=== PATIENT | female | born 1980 | race Hispanic/Latino ===

== ENCOUNTER 2017-10-25 17:48 | Emergency (ER) | payer SELFPAY ==
[~2017-10-25 17:48] MED LIST: ISOVUE-370 76%-LOCM 1 ML ONE
[2017-10-25 19:02] LABS: Bilirubin Negative (Negative); Blood, Urine Moderate (Negative); Glucose, Urine (Dipstick) Negative (Negative); Leukocyte Negative (Negative); Nitrite Negative (Negative); Protein, Urine (Dipstick) Negative (Neg-Trace); Specific Gravity, Urine 1.025 (1.005-1.030)
[2017-10-25 19:04] LABS: Clarity Clear (Clear)
[2017-10-25 19:06] LABS: Bacteria/HPF Rare-Few HPF (None Seen); Hyaline Casts/LPF 0-3 HYALINE CAST LPF (0-3 Hyaline); Pathc Cast-AUWi Flag 0.94 (0-2.49); RBC/HPF 0-3 HPF (0-3); WBC/HPF 0-3 HPF (0-3)
[2017-10-25 19:07] LABS: Pregnancy Test - Urine (BHCG) Negative (Negative); Pregu Control Background? CLEAR/WHITE (CLR/WHITE); Pregu Control Bar Appear? YES (CONTROL BAR); Specific Gravity 1.025 (1.002-1.036)
[2017-10-25 19:11] LABS: Crystals/HPF 1+ SODIUM URATE HPF (Negative)
[2017-10-25 20:42] LABS: #Lymphocytes 1.3 thou/uL (1.20-3.40); #Monocytes 0.4 thou/uL (0.11-0.59); #Neutrophils 9.6 thou/uL (1.40-6.50); %Basophils 0.2 % (0.0-1.0); %Eosinophils 0.3 % (0.0-10.0); %Lymphocytes 11.1 % (21.0-51.0); %Monocytes 3.2 % (0.0-10.0); %Neutrophils 85.3 % (42.0-75.0); Hemoglobin 14.7 g/dL (12.0-16.0); Mean Corpuscular HGB CONC 35.2 g/dL (32.0-36.0); Mean Corpuscular Hemoglobin 34.5 pg (27.0-31.0); Mean Corpuscular Volume 98.1 fl (81.0-99.0); Mean Platelet Volume 6.5 fL (7.4-10.4); Platelet Count 328 thou/uL (130-400); RBC Distribution Width 11.3 % (11.5-14.5); Red Blood Cell (RBC) Count 4.26 mill/uL (4.20-5.40); White Blood Cell (WBC) Count 11.3 thou/uL (4.8-10.8)
[2017-10-25 20:59] LABS: ALT (SGPT) 254 U/L (8-55); AST (SGOT) 189 U/L (5-34); Albumin 4.4 g/dL (3.5-5.0); Alkaline Phosphatase 128 U/L (40-150); Anion Gap 14 mmol/L (10-20); BUN (Urea Nitrogen) 12 mg/dL (7.0-18.7); Calc. Creatinine Clearance 0 mL/min (70-130); Calcium 9.4 mg/dL (7.8-10.44); Carbon Dioxide 24 mmol/L (22-29); Chloride 100 mmol/L (98-107); Estimated GFR-MDRD Greater than 90; Glucose 152 mg/dL (70-105); Lipase 15 U/L (8-78); Potassium 3.8 mmol/L (3.5-5.1); Protein, Total 8.4 g/dL (6.0-8.3); Sodium 134 mmol/L (136-145)
[2017-10-25] MEDS ORDERED: Ondansetron HCl/PF 4 MG/2 ML Vial ONE ×2 (21:59→22:41)
--- NOTE | 2017-10-26 00:41 | CT ---
EXAM: ABDOMEN CT WITH CONTRAST PELVIC CT WITH CONTRAST 10/25/17 HISTORY: Dull aching abdominal pain. Nausea. COMPARISON: None. TECHNIQUE: An abdomen and pelvic CT are performed with IV contrast. Enteric contrast was not administered. Coron al reformatted images are submitted for interpretation. FINDINGS: ABDOMEN CT: The lung bases are clear. Heart size is normal. Heart size is normal. No significant pericardial flui d. Descending thoracic aorta and abdominal aorta have a normal caliber. No periaortic fat stranding. Gallbladder is surgically absent. Intra and extrahepatic vein is patent. Hypoattenuation of the liver due to hepatic steatosis. No hepatic masses. Spleen, pancreas, and adren al glands are unremarkable. No gastrohepatic, retrocrural or periportal lymphadenopathy. No mesenteric mass, lymphadenopathy, free air or free fluid. Symmetric enhancement of the kidneys. Bilaterally, no obstructive uropathy. Limited evaluation of the alimentary canal due to lack of oral contrast. No evidence of bowel obstruction. Ileocecal junction is normal. There is fluid attenuation in the right hemicolon. Scattered diverticula. No diverticuliti s. Normal caliber appendix. PELVIC CT: Hypodensity in the lower uterine segment measuring 1.3 cm likely representing a Nabothian cyst. The u terus and adnexal structures are unremarkable. There appears to be a central filling defect involving the right ovarian vein. Significance and etiology uncertain. The possibility of a partial thrombus o f the right ovarian vein cannot be excluded. Urinary bladder is unremarkable. No lytic or blastic lesions in the osseous structures. IMPRESSION: 1. Normal caliber appendix. 2. Fluid attenuation in the right hemicolon of uncertain significance. 3. Diverticulosis, without evidence of diverticulitis. 4. Possible partial thrombosis of the right ovarian vein of uncertain significance. Both ovaries appear to have symmetric attenuation. Pelvic ultrasound may be beneficial. SHUTTLE VAN [employer]IVER consultation may also be beneficial. POS: [facility]
--- NOTE | 2017-10-26 08:03 | ULT ---
PRELIMINARY REPORT/[facility]/EMERGENCY AFTER HOURS PROCEDURE: EXAM: US Pelvis Complete CLINICAL HISTORY: 37 years old, female; Pain and signs and symptoms; Menstruation abnormalities; Irregular menstruation ; Abdominal pain; Other: Upper abdomen; Patient HX: Abd pain, n/v, dizziness. Irregular periods for y ears TECHNIQUE: Real-time pelvic ultrasound (complete) with image documentation. COMPARISON: No relevant prior studies available. FINDINGS: Uterus/cervix: Nabothian cysts in the cervix Normal endometrial stripe thickness. No myometrial mass. Right ovary: Unremarkable. No mass. Normal blood flow. Left ovary: Unremarkable. No mass. Normal blood flow. Free fluid: No free fluid. IMPRESSION: No definite acute process Thank you for allowing us to participate in the care of your patient. Dictated and Authenticated by: Jesus Purvis MD 10/26/2017 2:06 AM Central Time ([place] & [place]) FINAL REPORT TRANSABDOMINAL TRANSVAGINAL JANE SCALE COLOR FLOW SPECTRAL DOPPLER PELVIC ULTRASOUND: I agree with the preliminary report given by Dr. Jesus Purvis of [facility]. POS: [facility]
== END 2017-10-26 03:29 | disposition home or self-care (01) ==
LOC: ERS 17:48
DX: R10.13 Epigastric pain (principal); R10.12 Left upper quadrant pain
CPT/HCPCS: 36415; 74177; 76856; 80053; 81003; 81015; 81025; 83690; 84443; 85025; 87040; 87149; 96361; 96374; 96376; J2405

== ENCOUNTER 2020-03-24 11:18 | Day surgery (SDC) | payer SELFPAY ==
[2020-03-24 11:55] VITALS: BMI 25.4
--- NOTE | 2020-03-24 12:25 | PDOC.FPROB ---
FMR OB H&P: HPI - History of Present Illness Chief Complaint: ctx and vag "leaking" Indentification: 39 y/o @ 32.3 wks dated by 8.4 wk sono History of Present Illness: 39 y/o with a pmhx of A1 White Class DM, @ 32.3 wks dated by 8.4 wk sono sent over from [facility] since having ctx that started 03/23 approx 7 PM. They have increased in frequency to 5-10 minutes apart this AM, but recently slowed down per pt. Pt states that last week she had a "jelly consistency," vag d/c and yesterday started to have clear fluid leaking per vagina every time she felt a contraction. She states it is enough fluid to cause her pants and underwear to become saturated needing changed. Pt admits for feeling fetus move frequently. Denies vaginal pain or bleeding. Pt states the last sexual intercourse was more than a month ago. 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 States she feels safe at home. - Family History Family History: Pt denies any known medical problems that are familial. FMR OB H&P: Medications - Current Home Medications: Medication Instructions Recorded Confirmed Type DHA 1 tab PO DAILY 08/21/13 08/21/13 History Aspirin Chewable [Aspirin Chewable 1 tab PO DAILY 03/24/20 03/24/20 History Tablet] Clotrimazole [Clotrimazole 1% 1 appful VAG HS 7 Days #1 tube 03/24/20 Rx Vaginal Cream] Iron 1 tab PO DAILY 03/24/20 03/24/20 History metroNIDAZOLE [Metronidazole] 500 mg PO BID #14 tab 03/24/20 Rx Allergies/Adverse Reactions: Allergies Allergy/AdvReac Type Severity Reaction Status Date / Time No Known Allergies Allergy Verified 08/21/13 14:17 FMR OB H&P: ROS - Review of Systems General: reports: other (no recent sexual intercourse). denies: fever/chills, recent trauma Eyes: denies: eye pain, scotomas ENT: denies: nasal congestion, sore throat Cardiovascular: denies: chest pain, edema Respiratory: denies: cough, shortness of breath Gastrointestinal: reports: cramping. denies: abdominal pain, bloating, nausea, vomiting, diarrhea, constipation Genitourinary (Female): reports: vaginal discharge, contractions. denies: incontinence, dysuria, hematuria, polyuria, hesitancy, vaginal pain, vaginal bleeding, vaginal pressure Musculoskeletal: denies: pain, swelling Neurologic: denies: numbness, seizures Integumentary: denies: itching, rash Hematologic/Lymphatic: denies: prolonged or excessive bleeding Psychological: denies: depression, anxiety FMR OB H&P: Vital Signs - Maternal Vital signs: BP 107/59 HR 113 pulse ox 99% on ra - Heart Tones Baseline: 150 Variability: moderate Acceleration: present Deceleration: absent [place]on contractions every: infrequent FMR OB H&P: Physical Exam - Physical Exam General: NAD, awake, alert and oriented HEENT: normocephalic and atraumatic, PERRLA, EOMI, MMM, no scleral icterus, grossly normal vision, grossly normal hearing, good dention Neck: supple, FROM, trachea midline, no LAD Chest: non-tender to palpation Breast: symmetric Heart: RRR, normal S1/S2, no murmurs/rubs/gallops, pulses present, no edema General: CTAB, no respiratory distress, good air movement, no rales/rhonchi, no wheezing, no retractions Abdomen: soft, gravid, non-tender, bowel sound present Musculoskeletal: normal gait and station, pulses present, FROM in all four extremities, no misalignment/asymmetry, no atrophy Neurological: sensation to pain,touch and proprioception grossly normal, no clonus, no tremor, no focal deficit Skin: no rash, good tugor, capillary refill <2 seconds, no jaundice Lymphatic: no unusual bruising or bleeding, no purpura, no petechia Psychiatric: intact recent and remote memory, good judgement and insight, normal mood and affect - Pelvic Exam Vulva: normal hair distribution, appropriate melony stage Cervix: no masses, no lesions, no blood Deviation from normal: yellow d/c from cervix with white cottage cheese d/c present on exam SVE: sterile spec exam of cervix: closed FMR OB H&P: A/P - Problem List (1) contractions Status: Acute Code(s): O47.9 - FALSE LABOR, UNSPECIFIED (2) Vaginal discharge during in third trimester Status: Acute Code(s): O26.893 - OTH RELATED CONDITIONS, THIRD TRIMESTER; N89.8 - OTHER SPECIFIED NONINFLAMMATORY DISORDERS OF VAGINA (3) White classification A2 gestational diabetes mellitus (GDM) Status: Acute Code(s): O24.419 - GESTATIONAL DIABETES MELLITUS IN , UNSP CONTROL (4) AMA (advanced maternal age) multigravida 35+ Status: Acute Code(s): O09.529 - SUPERVISION OF ELDERLY MULTIGRAVIDA, UNSPECIFIED TRIMESTER Qualifiers: Trimester: third trimester Qualified Code(s): O09.523 - Supervision of elderly multigravida, third trimester Discussion: Date/Time: 03/24/20 1225 39 y/o @ 32.3 wks, dated by 8.4 wk sono presents to L&D with ctx and vaginal discharge, rule out PPROM and labor. 1. sIUP @ 32.3 wks - fht's: 150 baseline with accels present, no decels, and mod variability - infrequent ctx on toco. One observed so far on monitor. 2. Contractions - irregular contractions observed on toco - encouraged Po hydration - Ordered UA, clean catch 3. Vaginal Discharge, R/O PPROM - Sterile spec exam: no pooling of fluid on valsalva, yellow d/c present at cervical oz, white cottage cheese appearing d/c on vaginal side tolliver. - Ordered stat amnisure and VP3 - with PE, clinical dd: Alis vulvovaginitis vs PPROM. will confirm she is not ruptured with amnisure. 4. AMA - age 39, continue care with PNC 5. White Class A2 gDM - continue diet and exercise control of glucose This H&P was discussed with Dr. Gao and Dr. Ko who agree with the above documentation and plan. Addendum - Attending - Attending Attestation Date/Time: 03/24/20 8515 I personally evaluated the patient and discussed the management with Dr. Chan. I agree with the History, Examination, Assessment and Plan documented above.
[2020-03-24] MEDS ORDERED: hydrALAZINE 20 MG/ML VIAL SLOW IVP PRN (12:26)
[2020-03-24 12:48] LABS: Amnisure Test No Membranes Rupture (No Rupture)
[2020-03-24 12:49] LABS: Amnisure Internal Control QC ACCEPTABLE (ACCEPTABLE)
[2020-03-24 13:12] LABS: Bilirubin Negative (Negative); Blood, Urine Negative (Negative); Clarity Clear (Clear); Glucose, Urine (Dipstick) Normal (Negative); Leukocyte 75 Leu/uL (Negative); Mucous/LPF Rare LPF (<2+); Nitrite Negative (Negative); Protein, Urine (Dipstick) Negative (Neg-Trace); RBC/HPF 0-3 HPF (0-3); Urobilinogen Normal mg/dL (Less than 2); WBC/HPF 0-3 HPF (0-3)
--- NOTE | 2020-03-24 13:14 | PDOC.BPN ---
<Rosette Chan - Last Filed: 03/24/20 13:12> - Brief Progress Note amnisure negative, closed cervix on sterile spec exam. No evidence for rupture of membranes. will follow up with VP3 and treat for watson vaginitis with X7 nights of vaginal clotrimazole topical. BP wnl HR slightly elevated, down trending after PO hydration. X2 contractions observed while on toco in L&D. f/u with PNC in [address] Gao and Dr. Ko who are in agreement with above plan. <Carroll Gao - Last Filed: 03/24/20 15:29> Addendum - Attending - Attending Attestation Date/Time: 03/24/20 8430 I personally evaluated the patient and discussed the management with Dr. Chan. I agree with the History, Examination, Assessment and Plan documented above.
[2020-03-24 13:23] LABS: Bacteria/HPF 1+ HPF (None Seen); Urine Culture Reflex No No
== END 2020-03-24 13:35 | disposition home or self-care (01) ==
LOC: L&D/OP 11:18
PROVIDERS: ATTEND Obstetrics & Gynecology
DX: O47.03 False labor before 37 completed weeks of gestation, third trimester (principal); O99.89 Other specified diseases and conditions complicating pregnancy, childbirth and the puerperium; N89.8 Other specified noninflammatory disorders of vagina; O24.410 Gestational diabetes mellitus in pregnancy, diet controlled; O09.523 Supervision of elderly multigravida, third trimester; Z3A.32 32 weeks gestation of pregnancy; Z79.82 Long term (current) use of aspirin; Z79.899 Other long term (current) drug therapy
CPT/HCPCS: 81001; 84112; 87480; 87510; 87660

== ENCOUNTER 2020-03-28 20:17 | Day surgery (SDC) | payer SELFPAY ==
[2020-03-28 21:02] VITALS: BMI 25.0
[2020-03-28] MEDS ORDERED: hydrALAZINE 20 MG/ML VIAL SLOW IVP PRN (21:23)
--- NOTE | 2020-03-28 21:58 | PDOC.FPROB ---
FMR OB H&P: HPI - History of Present Illness Chief Complaint: Bleeding Indentification: 39 yo @ 32.5 wks by 8.4 wk sono History of Present Illness: Pt is a 39 yo @ 32.5 wks by 8.4 wk sono who present due to vaginal bleeding. She stated that today around 6:30 pm she had bleeding that soaked through her underwear on to her pajama pants. She has never had any bleeding or spotting before. She endorses good movement. She denies and vaginal discharge, dysuria, or loss of fluid. Of note, the patient is being treated with Metronidazole and has 3 days left of her antibiotic course. 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 States she feels safe at home. Family History: Pt denies any known medical problems that are familial. FMR OB H&P: Medications - Current Home Medications: Medication Instructions Recorded Confirmed Type DHA 1 tab PO DAILY 08/21/13 03/28/20 History Aspirin Chewable [Aspirin Chewable 1 tab PO DAILY 03/24/20 03/28/20 History Tablet] Clotrimazole [Clotrimazole 1% 1 appful VAG HS 7 Days #1 tube 03/24/20 03/28/20 Rx Vaginal Cream] Iron 1 tab PO DAILY 03/24/20 03/28/20 History metroNIDAZOLE [Metronidazole] 500 mg PO BID #14 tab 03/24/20 03/28/20 Rx Allergies/Adverse Reactions: Allergies Allergy/AdvReac Type Severity Reaction Status Date / Time No Known Allergies Allergy Verified 03/28/20 21:03 FMR OB H&P: ROS - Review of Systems General: denies: fever/chills Eyes: denies: vision changes ENT: denies: nasal congestion, rhinorrhea Cardiovascular: denies: chest pain, edema Respiratory: denies: cough, congestion, shortness of breath Gastrointestinal: reports: nausea. denies: abdominal pain, indigestion, vomiting, diarrhea, constipation Genitourinary (Female): reports: vaginal pain, vaginal bleeding. denies: dysuria, vaginal discharge Musculoskeletal: reports: pain (back pain) Neurologic: denies: numbness, weakness Integumentary: denies: itching, rash Hematologic/Lymphatic: denies: prolonged or excessive bleeding, enlarged lymph nodes FMR OB H&P: Vital Signs - Maternal Vital signs: BP: 108/88 T: 88.6 HR: 96 - Heart Tones Baseline: 145 Variability: moderate Acceleration: absent Category: category 1 [place] contractions every: None noted FMR OB H&P: Physical Exam - Physical Exam General: NAD HEENT: normocephalic and atraumatic, EOMI, MMM, conjunctiva clear, normal nasal mucosa, oropharynx clear Heart: RRR, normal S1/S2, no murmurs/rubs/gallops, pulses present General: CTAB, no respiratory distress, good air movement, no rales/rhonchi, no wheezing, no retractions Abdomen: soft, gravid, bowel sound present Musculoskeletal: normal gait and station, pulses present, FROM in all four extremities Neurological: cranial nerves II through XII intact, no focal deficit Skin: no rash, good tugor Lymphatic: no unusual bruising or bleeding, no purpura, no petechia Psychiatric: normal mood and affect FMR OB H&P: A/P - Problem List (1) Vaginal bleeding during Status: Acute Code(s): O46.90 - ANTEPARTUM HEMORRHAGE, UNSPECIFIED, UNSPECIFIED TRIMESTER (2) AMA (advanced maternal age) multigravida 35+ Status: Acute Code(s): O09.529 - SUPERVISION OF ELDERLY MULTIGRAVIDA, UNSPECIFIED TRIMESTER Qualifiers: Trimester: third trimester Qualified Code(s): O09.523 - Supervision of elderly multigravida, third trimester (3) Vaginal discharge during in third trimester Status: Acute Code(s): O26.893 - OTH RELATED CONDITIONS, THIRD TRIMESTER; N89.8 - OTHER SPECIFIED NONINFLAMMATORY DISORDERS OF VAGINA (4) White classification A2 gestational diabetes mellitus (GDM) Status: Acute Code(s): O24.419 - GESTATIONAL DIABETES MELLITUS IN , UNSP CONTROL Disposition: 39 y/o @ 32.5 wks, dated by 8.4 wk woo presents to L&D with vaginal bleeding. 1. Vaginal Bleeding Vaginal bleeding that started today and soaked through pad * US showed anterior fundal placenta with good movement * Speculum exam showed some cervicitis with no blood from the os during valsava and dark blood in the vaginal canal 2. sIUP @ 32.5 wks Fht's: 140 baseline with accels present, no decels, and mod variability * Infrequent ctx on toco. 3. BV VP3 earlier in the week was positive for BV * Currently on Metronidazole 4. AMA Age 39, continue care with PNC 5. White Class A2 gDM Continue diet and exercise control of glucose Dispo: Discharged home with return precautions given. Vaginal bleeding possibly due to infection vs. small abruption. Discussion: Date/Time: 03/28/202156 This H&P was discussed with [] and [] who agree with the above documentation and plan. Addendum - Attending - Attending Attestation Date/Time: 03/29/20 4553 I personally evaluated the patient and discussed the management with Dr. Janina Call I agree with the History, Examination, Assessment and Plan documented above with any addition or exceptions noted below- 39 yo @32.5 weeks presented with episode of vaginal bleeding. Denies any ctx, LOF. (+) FM. Currently being treated for BV and yeast infection. USG- anterior, fundal placenta. SSE- small amount dark blood; no active bleeding; irritated cervix. Category 1 FHTs. [place]- no ctx. A/P: 1) IUP @32.5 weeks with episode of vaginal bleeding now resolved; possibly secondary to cervicitis. No evidence of labor. D /c home with precautions. Continue treatment of BV.
--- NOTE | 2020-03-29 07:29 | ULT ---
BIOPHYSICAL PROFILE: Date: 03/28/2020 COMPARISON: None. HISTORY: Vaginal bleeding, assess placenta. TECHNIQUE: Multiplanar Brenner scale sonographic imaging of the gravid uterus obtained. FINDINGS: Cervical length is 3.2 cm. heart rate is 143 bpm. Single, intrauterine gestation demonstrates a transverse lie. Amniotic fluid index is 22.0 cm. Placenta is located anteriorly and to left of midline with no evidence for previa or abruption. Lead Scientist reports a 2/2 score for tone, breathing, movement, and amniotic fluid, for an 8/8 biophysical profile. IMPRESSION: 8/8 biophysical profile. Transverse lie. Cervical length approximately 3.2 cm. POS: [facility]
== END 2020-03-28 23:22 | disposition home or self-care (01) ==
LOC: L&D/OP 20:17
PROVIDERS: ATTEND Family Medicine
DX: O46.93 Antepartum hemorrhage, unspecified, third trimester (principal); O24.419 Gestational diabetes mellitus in pregnancy, unspecified control; O23.593 Infection of other part of genital tract in pregnancy, third trimester; B96.89 Other specified bacterial agents as the cause of diseases classified elsewhere; O09.523 Supervision of elderly multigravida, third trimester; Z3A.32 32 weeks gestation of pregnancy; Z79.82 Long term (current) use of aspirin; Z79.899 Other long term (current) drug therapy
CPT/HCPCS: 76819; 99283

== ENCOUNTER 2020-04-07 12:26 | Day surgery (SDC) | payer SELFPAY ==
--- NOTE | 2020-04-07 12:32 | PDOC.FPROB ---
FMR OB H&P: HPI - History of Present Illness Chief Complaint: contractions Indentification: 39 yo @ 34.3 wk by 8.4 wk sono History of Present Illness: 39 yo @ 34.3 wk by 8.4 wk sono was sent from [facility] appointment for frequent contractions. She has a PMH of A1GDM and is AMA. Pt reports she has had contractions in lower abdomen wrapping to her lower back for the past 2 days. They are 10-15 minutes apart. Patient denies VB, LOF; reports she had clear jelly-like discharge 2 days ago that was pink tinged. + FM. Denies dysuria/hematuria, n/v/d/c, fever/chills. She is taking her aspirin and PNV. Patient was sent over from [facility]. They reported her cervix as 1/50/-3, soft and anterior. She had no pooling on vaginal exam with valsalva. She did have thick discharge, so VP3 and GCC was collected. UA was negative for nitrates and leukocyte esterase. 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 She is with a daughter and plans to name her Brenda - Family History Family History: Denies FH of heart disease, diabetes, or HTN FMR OB H&P: Medications - Current Home Medications: Medication Instructions Recorded Confirmed Type DHA 1 tab PO DAILY 08/21/13 03/28/20 History Aspirin Chewable [Aspirin Chewable 1 tab PO DAILY 03/24/20 03/28/20 History Tablet] Clotrimazole [Clotrimazole 1% 1 appful VAG HS 7 Days #1 tube 03/24/20 03/28/20 Rx Vaginal Cream] Iron 1 tab PO DAILY 03/24/20 03/28/20 History metroNIDAZOLE [Metronidazole] 500 mg PO BID #14 tab 03/24/20 03/28/20 Rx Allergies/Adverse Reactions: Allergies Allergy/AdvReac Type Severity Reaction Status Date / Time No Known Allergies Allergy Verified 03/28/20 21:03 FMR OB H&P: ROS - Review of Systems General: denies: fever/chills Eyes: denies: eye pain, vision changes ENT: denies: nasal congestion, rhinorrhea Cardiovascular: denies: chest pain, palpitation Respiratory: denies: cough, congestion, shortness of breath, other (wheezing) Gastrointestinal: reports: cramping. denies: nausea, vomiting, diarrhea, constipation Genitourinary (Female): reports: contractions. denies: dysuria, hematuria, vaginal discharge, vaginal pain, vaginal bleeding Neurologic: denies: numbness, weakness Integumentary: denies: itching, rash, lesions Breast: denies: skin changes Psychological: denies: depression, anxiety FMR OB H&P: Vital Signs - Maternal Vital signs: 115/59, P 106, 98% on RA, R 20, 97.9 F - Heart Tones Baseline: 140 Variability: moderate Acceleration: present Deceleration: absent [place] contractions every: none FMR OB H&P: Physical Exam - Physical Exam General: NAD, awake, alert and oriented HEENT: normocephalic and atraumatic, PERRLA, EOMI, MMM, conjunctiva clear, grossly normal hearing, oropharynx clear, good dention Neck: supple, no LAD Breast: symmetric, no skin changes Heart: RRR, normal S1/S2, no murmurs/rubs/gallops General: CTAB, no respiratory distress, good air movement, no rales/rhonchi Abdomen: soft, gravid, bowel sound present Musculoskeletal: normal gait and station, pulses present, FROM in all four extremities, no atrophy Neurological: cranial nerves II through XII intact Skin: no rash, good tugor, capillary refill <2 seconds Lymphatic: no unusual bruising or bleeding, no purpura Psychiatric: intact recent and remote memory, good judgement and insight, normal mood and affect FMR OB H&P: A/P - Problem List (1) AMA (advanced maternal age) multigravida 35+ Status: Acute Code(s): O09.529 - SUPERVISION OF ELDERLY MULTIGRAVIDA, UNSPECIFIED TRIMESTER Qualifiers: Trimester: third trimester Qualified Code(s): O09.523 - Supervision of elderly multigravida, third trimester (2) contractions Status: Acute Code(s): O47.9 - FALSE LABOR, UNSPECIFIED (3) White classification A2 gestational diabetes mellitus (GDM) Status: Acute Code(s): O24.419 - GESTATIONAL DIABETES MELLITUS IN , UNSP CONTROL Discussion: Date/Time: 04/07/20 1231 39 yo @ 34.3 wk by 8.4 wk sono presents for contractions. SUNNY . #sIUP with contractions, rule out labor -UA negative in PNC, with VP3 and GC collected at PNC. Will not repeat. -FHTs: baseline 140, mod variability, +accels, no decels. No contractions seen on toco. -SVE: /-3 in clinic, will recheck here -Collect GBS -Monitor for 2 hours, recheck cervix. If no change, plan to discharge to home. Plan for 2 week follow up at [facility] for 36 wk visit. -Cervix 3.2 cm in length last admission 03/28/2020 #Vaginal discharge -Hx of BV previously in -Pt denies abnormal discharge; PNC reported thick vaginal discharge, VP3 and GCC collected #AMA -continue ASA until delivery -Continue outpt testing at [facility], and serial growth scans with [facility] #A1GDM Paco Woodson PGY2 This H&P was discussed with Dr. Argueta who agree with the above documentation and plan. Addendum - Attending - Attending Attestation Date/Time: 04/08/20 0340 I personally evaluated the patient and discussed the management with Dr. Woodson. I agree with the History, Examination, Assessment and Plan documented above.
[2020-04-07] MEDS ORDERED: hydrALAZINE 20 MG/ML VIAL SLOW IVP PRN (12:35)
[2020-04-07 13:00] VITALS: BMI 25.9
[2020-04-07 13:01] VITALS: BP 115/59; TEMP 97.9
--- NOTE | 2020-04-07 14:38 | PDOC.BPN ---
- Brief Progress Note Patient cervical check was unchanged. She was discharge to home with return precautions. Patient should follow up in 2 weeks with PNC, and has a follow up US at [facility] on . Discussed that patient should call the PNC back if she does not hear her results from the VP3 and GCC by this coming afternoon. Answered all questions.
== END 2020-04-07 14:30 | disposition home or self-care (01) ==
LOC: L&D/OP 12:26
PROVIDERS: ATTEND Family Medicine
DX: O47.03 False labor before 37 completed weeks of gestation, third trimester (principal); O24.410 Gestational diabetes mellitus in pregnancy, diet controlled; O09.523 Supervision of elderly multigravida, third trimester; O99.89 Other specified diseases and conditions complicating pregnancy, childbirth and the puerperium; N89.8 Other specified noninflammatory disorders of vagina; Z3A.34 34 weeks gestation of pregnancy; Z79.82 Long term (current) use of aspirin
CPT/HCPCS: 87081; 99282

== ENCOUNTER 2020-04-09 17:56 | Observation (INO) | payer OTHER, SELFPAY ==
[2020-04-09 18:24] VITALS: BMI 25.9
--- NOTE | 2020-04-09 19:32 | PDOC.FPROB ---
FMR OB H&P: HPI - History of Present Illness Chief Complaint: Contractions Indentification: History of Present Illness: Pt is a 39 yo at 34.5 wks by 8.4 wks sono who presents with contractions. She was seen 2 days ago for the same and noted to have 1/50/-3, soft, anterior. At this time she had discharge and VP3, GCCH was done at [facility]. UA negative. She states the contractions are not frequent but started last night at 9 pm. She has a yellow discharge w/ blood tinge, thick in nature at 0900 today. She denies leakage of fluids. She is an A1GDM, AMA, Anemia of . [facility] - [place] FMR OB H&P: Current - Care : 3 Para: 2001 Gestational age: 34.5 Due date: 05/16/20 Dating Criteria: 8.4 wks sono Course/Complications: A1GDM, Anemia of - OB Labs Blood type: O RH: positive Antibody Screen: negative HIV: negative RPR: negative HepBsAg: negative Rubella: immune GBS: unknown FMR OB H&P: History - Past Medical History PMH: A1GDM vs pregestation DM, not on medication - OB History OB History: two @ 38 and 40 wks delivery Daughters are now 6 and 13 - POLE TESTER History POLE TESTER History: Hx of BV this , no hx of STIs - Surgical History Sx History: cholecystectomy at 19 - Social History Social History: Denies tobacco alcohol or drugs - Family History Family History: non-contributory FMR OB H&P: Medications - Current Home Medications: Medication Instructions Recorded Confirmed Type Aspirin Chewable [Aspirin Chewable 1 tab PO DAILY 03/24/20 03/28/20 History Tablet] Clotrimazole [Clotrimazole 1% 1 appful VAG HS 7 Days #1 tube 03/24/20 03/28/20 Rx Vaginal Cream] Iron 1 tab PO DAILY 03/24/20 03/28/20 History metroNIDAZOLE [Metronidazole] 500 mg PO BID #14 tab 03/24/20 03/28/20 Rx Pnv73/Iron,Gluc/Folic/Dss/Dha 1 tab PO DAILY 04/09/20 04/09/20 History [Citranatal Assure Combo Pack] Allergies/Adverse Reactions: Allergies Allergy/AdvReac Type Severity Reaction Status Date / Time No Known Allergies Allergy Verified 03/28/20 21:03 FMR OB H&P: ROS - Review of Systems General: denies: fever/chills, weight/appetite/sleep changes ENT: denies: nasal congestion, rhinorrhea Cardiovascular: denies: chest pain, palpitation, edema Respiratory: denies: cough, shortness of breath Gastrointestinal: denies: abdominal pain, indigestion Genitourinary (Female): denies: incontinence, dysuria Musculoskeletal: denies: pain, stiffness Neurologic: denies: numbness, seizures Integumentary: denies: itching, rash Psychological: denies: depression, anxiety FMR OB H&P: Vital Signs - Heart Tones Baseline: 150 Variability: moderate Acceleration: absent FMR OB H&P: Physical Exam - Physical Exam General: NAD, awake, alert and oriented HEENT: PERRLA, EOMI Neck: FROM, no JVD Heart: RRR, normal S1/S2, no edema General: CTAB, no respiratory distress, good air movement Abdomen: soft, gravid, non-tender Musculoskeletal: normal gait and station, pulses present Neurological: cranial nerves II through XII intact, sensation to pain,touch and proprioception grossly normal Skin: no rash, capillary refill <2 seconds Lymphatic: no purpura, no petechia Psychiatric: intact recent and remote memory, good judgement and insight FMR OB H&P: A/P - Problem List (1) GDM (gestational diabetes mellitus) Current Visit: Yes Status: Acute Code(s): O24.419 - GESTATIONAL DIABETES MELLITUS IN , UNSP CONTROL (2) AMA (advanced maternal age) multigravida 35+ Current Visit: No Status: Acute Code(s): O09.529 - SUPERVISION OF ELDERLY MULTIGRAVIDA, UNSPECIFIED TRIMESTER Qualifiers: Trimester: third trimester Qualified Code(s): O09.523 - Supervision of elderly multigravida, third trimester (3) contractions Current Visit: No Status: Acute Code(s): O47.9 - FALSE LABOR, UNSPECIFIED (4) Vaginal discharge during in third trimester Current Visit: No Status: Acute Code(s): O26.893 - OTH RELATED CONDITIONS, THIRD TRIMESTER; N89.8 - OTHER SPECIFIED NONINFLAMMATORY DISORDERS OF VAGINA Disposition: Pt is a 39 yo at 34.5 wks, SUNNY 05/16, who presents with contractions: # IUP, Pre-term < 36 wks Check 2 days ago, /-3. Recheck today 2 cm. Will monitor for 4 hours and see if she has made progression. If she has we will administer steroids. Will not currently administer steroids as we would like pt to declare labor. - stadol - IV fluids - recheck in 4 hours - Cervix 3.2 cm in length on 03/28 # Vaginal Discharge - swabbed for VP3 and GC at [facility] 2 days ago, UA negative at this time. - Pt has follow up at 36 wks at [facility] # AMA - continue ASA until delivery - continue outpt testing at [facility] and serial growth scans with M # A1GDM Dispo: monitor for 4 hours Discussion: Date/Time: 04/09/201931 This H&P was discussed with [] and [] who agree with the above documentation and plan.
--- NOTE | 2020-04-09 19:48 | PDOC.BPN ---
- Brief Progress Note OBGYN Faculty correction warden I am aware of Ms Copeland's triage status. I gaudencioave reviewed this with Dr Kolb ( Resident pump station operator); Ms Copeland is a 39 yo at 34 weeks 5 days who was in L&D 2 days ago with similar CTX sxs. She was 1cm then. NO LOF, no VB. Good FM. BP 108/56 NST reactive WE will check CX and reassess in 2 hrs Please see full H&P in EMR
[2020-04-09] MEDS ORDERED: Butorphanol Tartrate 1 MG/ML VIAL SLOW IVP SCH (20:06)
[2020-04-09] MEDS ORDERED: Lactated Ringer's 1,000 ML IV SCH (20:15)
--- NOTE | 2020-04-10 00:22 | PDOC.BPN ---
- Brief Progress Note CX 3cm now...we will keep in L&D and give steroids and check sono EFW.
[2020-04-10] MEDS ORDERED: Promethazine HCl 25 MG/ML VIAL IM PRN (00:28)
[2020-04-10] MEDS ORDERED: Ondansetron PF 4 MG/2 ML Vial IVP PRN (00:28)
--- NOTE | 2020-04-10 00:28 | PDOC.LDPN ---
Labor & Delivery Progress Note - Assessment (1) GDM (gestational diabetes mellitus) Code(s): O24.419 - GESTATIONAL DIABETES MELLITUS IN , UNSP CONTROL Current Visit: Yes Status: Acute (2) AMA (advanced maternal age) multigravida 35+ Code(s): O09.529 - SUPERVISION OF ELDERLY MULTIGRAVIDA, UNSPECIFIED TRIMESTER Current Visit: No Status: Acute Qualifiers: Trimester: third trimester Qualified Code(s): O09.523 - Supervision of elderly multigravida, third trimester (3) contractions Code(s): O47.9 - FALSE LABOR, UNSPECIFIED Current Visit: No Status: Acute (4) Vaginal discharge during in third trimester Code(s): O26.893 - OTH RELATED CONDITIONS, THIRD TRIMESTER; N89.8 - OTHER SPECIFIED NONINFLAMMATORY DISORDERS OF VAGINA Current Visit: No Status : Acute -: Pt made change from 2 cm to 3 cm in 4 hours. Will keep pt and monitor for progression of labor. Will administer steroids. Will not continuously monitor. Start fluids. Pending EFW sono. Discussed with Dr. Demetrius Duarte, DO 04/10/20
[2020-04-10] MEDS: Betamet Acet/Betamet Na Ph 30 MG/5 ML VIAL IM SCH (02:07)
[2020-04-10] MEDS: Lactated Ringer's 1,000 ML IV SCH ×3 (02:11→21:30)
[2020-04-10 02:34] LABS: Hemoglobin 10.8 g/dL (12.0-16.0); Mean Corpuscular HGB CONC 34.6 g/dL (32.0-36.0); Mean Corpuscular Volume 98.1 fL (78.0-98.0); Mean Platelet Volume 6.5 fL (7.4-10.4); Platelet Count 371 thou/uL (130-400); RBC Distribution Width 13.3 % (11.5-14.5); Red Blood Cell (RBC) Count 3.16 mill/uL (4.20-5.40); White Blood Cell (WBC) Count 10.8 thou/uL (4.8-10.8)
[2020-04-10 03:16] LABS: HBSAg Index 0.15 S/CO (0-0.99); HIV (1/2) Antibody/Antigen Non-Reactive (NonReactive); HIV 1/2 INDEX 0.11 S/CO (<1.00); Hep B Surf Ag Non-Reactive S/CO (NonReactive)
[2020-04-10 04:35] LABS: Syphilis Antibody Nonreactive (Nonreactive); Syphilis Antibody Index 0.03 S/CO (<1.00 Non-Reactive)
--- NOTE | 2020-04-10 08:03 | PDOC.BPN ---
- Brief Progress Note CORRECTION ON HX: Preexisting DM (Class B) but is diet controlled. She is NOT A1GDM.
--- NOTE | 2020-04-10 08:22 | ULT ---
LIMITED OB ULTRASOUND: DATE: 04/10/2020. PROVIDED CLINICAL HISTORY: Premature contractions. FINDINGS: Single live intrauterine gestation is documented in vertex presentation. Estimated gestational age o n the basis of the current study is 34 weeks 5 days. Estimated weight is 2525 +/- 374 gm. The placenta is anteriorly located without evidence for previa. ANAHI is 9.7. heart rate is docume nted as 143 b.p.m. anatomic survey was not performed. Cervical length appears adequate and no rmal in appearance. Biometry: BPD 8.44 cm, 34 weeks 0 days Head circumference 30.85 cm, 34 weeks 3 days Abdominal circumference 30.77 cm, 34 weeks 5 days Femur length 6.92 cm, 35 weeks 4 days IMPRESSION: Single live intrauterine gestation as described, 34 weeks 5 days by ultrasound. POS: SHIRLEY
[2020-04-10] MEDS ORDERED: Dextrose 50% Abboject 50 ML SYRINGE SLOW IVP PRN (09:48)
[2020-04-10] MEDS ORDERED: Dextrose 5% in Water 1,000 ML IV PRN (09:48)
[2020-04-10] MEDS: HumaLOG 300 UNITS/3 ML VIAL SC PRN ×3 (12:17→18:29)
--- NOTE | 2020-04-10 12:19 | PDOC.OBAPN ---
FMR OB AP PN: Sub - Interval History Hospital Day: 2 Chief Complaint: contractions Indentification: 39 yo at 34.6 wks by 8.4 wks FMR OB AP PN: Obj - Maternal Vital signs: BP: [99/54] HR: [115] RR: [16] Tmax: [98.8] Pox: []% on [] Wt: [60 kg] - Heart Tones Baseline: 140 Variability: moderate Acceleration: present (reactive) Deceleration: absent [place] contractions every: irregular FMR OB AP PN: Exam - Physical Exam General: NAD, awake, alert and oriented HEENT: normocephalic and atraumatic, MMM, grossly normal hearing Heart: RRR, normal S1/S2 General: CTAB, no respiratory distress Abdomen: soft, gravid Musculoskeletal: pulses present, FROM in all four extremities, no atrophy Skin: no rash, good tugor, capillary refill <2 seconds Psychiatric: intact recent and remote memory, good judgement and insight, normal mood and affect FMR OB AP PN: Data - Labs Lab results: Laboratory Results - last 24 hr 04/10/20 04/10/20 04/10/20 02:14 02:14 02:14 WBC RBC Hgb Hct MCV MCH MCHC RDW Plt Count MPV POC Glucose Syphilis IgG/IgM Ab Nonreactive Hep Bs Antigen Non-Reactive HIV 1&2 Antigen & Ab Non-Reactive Blood Type O POSITIVE Antibody Screen NEGATIVE 04/10/20 04/10/20 04/10/20 02:14 02:34 06:58 WBC 10.8 RBC 3.16 L Hgb 10.8 L Hct 31.0 L MCV 98.1 H MCH 34.0 H MCHC 34.6 RDW 13.3 Plt Count 371 MPV 6.5 L POC Glucose 95 Syphilis IgG/IgM Ab Hep Bs Antigen HIV 1&2 Antigen & Ab Blood Type O POSITIVE Antibody Screen 04/10/20 08:27 WBC RBC Hgb Hct MCV MCH MCHC RDW Plt Count MPV POC Glucose 149 H Syphilis IgG/IgM Ab Hep Bs Antigen HIV 1&2 Antigen & Ab Blood Type Antibody Screen FMR OB AP PN: A/P - Problem List (1) Modified White class B pregestational diabetes mellitus Current Visit: Yes Status: Chronic Code(s): O24.319 - UNSP PRE-EXISTING DIABETES IN , UNSP TRIMESTER (2) AMA (advanced maternal age) multigravida 35+ Current Visit: No Status: Acute Code(s): O09.529 - SUPERVISION OF ELDERLY MULTIGRAVIDA, UNSPECIFIED TRIMESTER Qualifiers: Trimester: third trimester Qualified Code(s): O09.523 - Supervision of elderly multigravida, third trimester (3) contractions Current Visit: No Status: Acute Code(s): O47.9 - FALSE LABOR, UNSPECIFIED Discussion: Date/Time: 04/10/20 1219 39 yo at 34.6 wks by 8.4 wks, here for labor # IUP, Pre-term contractions -Radha irregularly, made cervical change overnight -SVE: /-3 on 04/08 2/_ /_ on 04/09 @ 1999 3/_ / _ on 04/10 @ 0000 -will only recheck if she begins radha regularly - s/p 1 dose betamethasone; 2nd dose due tomorrow AM 0200 - Expectant management - GBS collected today - continue IV fluids - ANAHI 19.7, cervical length adequate at 3.57 cm, vertex, EFW 45th% - GCC and trich negative [facility] 04[facility]. Recent UA negative - Pt has follow up at 36 wks at [facility] # AMA - continue ASA until delivery - continue outpt testing at [facility] and serial growth scans with MFM #White Class B diabetes - Diet controlled prior to admission. BS elevated 2/2 to steroids. Started sliding scale insulin, continue accuchecks #Anemia -Hgb 10.8 L Kandice PGY2 This documentation was discussed with Dr. Pepeo agree with the above documentation and plan.
[2020-04-10] MEDS ORDERED: Aspirin 81 mg Enteric Coated Tablet PO SCH (12:45)
[2020-04-10] MEDS ORDERED: Ferrous Sulfate 325 MG TAB PO SCH (13:30)
--- NOTE | 2020-04-10 22:32 | PDOC.LDPN ---
Labor & Delivery Progress Note - Subjective Subjective: painful contractions, vaginal pressure - Objective Vital signs reviewed and normal: yes General: NAD (feels contractions [id number]) FHT: category 1, variability present [place] contractions every: 10-15 mins Other exam findings: FHT's 150's, moderate variability, accels present - Assessment (1) GDM (gestational diabetes mellitus) Code(s): O24.419 - GESTATIONAL DIABETES MELLITUS IN , UNSP CONTROL Status: Acute (2) AMA (advanced maternal age) multigravida 35+ Code(s): O09.529 - SUPERVISION OF ELDERLY MULTIGRAVIDA, UNSPECIFIED TRIMESTER Status: Acute Qualifiers: Trimester: third trimester Qualified Code(s): O09.523 - Supervision of elderly multigravida, third trimester (3) contractions Code(s): O47.9 - FALSE LABOR, UNSPECIFIED Status: Acute (4) Vaginal discharge during in third trimester Code(s): O26.893 - OTH RELATED CONDITIONS, THIRD TRIMESTER; N89.8 - OTHER SPECIFIED NONINFLAMMATORY DISORDERS OF VAGINA Status: Acute -: 39 yo at 34.6 wks by 8.4 wks, here for labor # IUP, Pre-term contractions -Radha irregularly, made cervical change overnight -SVE: /-3 on 04/08 2/_ /_ on 04/09 @ 1999 3/_ / _ on 04/10 @ 0000 -will only recheck if she begins radha regularly - s/p 1 dose betamethasone; 2nd dose due tomorrow AM 0200 - Expectant management - GBS collected today - continue IV fluids - ANAHI 19.7, cervical length adequate at 3.57 cm, vertex, EFW 45th% - GCC and trich negative at [facility] 04/07. Recent UA negative - Pt has follow up at 36 wks at [facility] # AMA - continue ASA until delivery - continue outpt testing at [facility] and serial growth scans with MFM #White Class B diabetes - Diet controlled prior to admission. BS elevated 2/2 to steroids. Started sliding scale insulin, continue accuchecks #Anemia -Hgb 10.8 Dispo: Plan unchanged Addendum - Attending - Attending Attestation Date/Time: 04/14/20 1117 I personally evaluated the patient and discussed the management with Dr. Duarte I agree with the History, Examination, Assessment and Plan documented above with any addition or exceptions noted below.
[2020-04-11] MEDS: Betamet Acet/Betamet Na Ph 30 MG/5 ML VIAL IM SCH (02:10)
[2020-04-11] MEDS: HumaLOG 300 UNITS/3 ML VIAL SC PRN ×3 (06:36→09:49)
--- NOTE | 2020-04-11 07:33 | PDOC.OBAPN ---
FMR OB AP PN: Sub - Interval History Hospital Day: 3 Chief Complaint: cxns Indentification: 39 yo at 35.0 wks by 8.4 wks, here for labor. SUNNY 05/16/2020 Interval History: Patient feels well this morning; she had cxns q10 overnight, reports improv FMR OB AP PN: Obj - Maternal Vital signs: BP: 93/52 HR: 104 RR: 16 Tmax: 98.8 Wt: 60 kg - Heart Tones Baseline: 145 Variability: moderate Acceleration: present Deceleration: absent [place] contractions every: occasional/irregular; reactive NST FMR OB AP PN: Exam - Physical Exam General: NAD, awake, alert and oriented Heart: RRR, normal S1/S2, no murmurs/rubs/gallops General: CTAB, no respiratory distress Abdomen: soft, gravid, non-tender Musculoskeletal: pulses present, FROM in all four extremities, no atrophy Skin: no rash, good tugor, capillary refill <2 seconds Lymphatic: no unusual bruising or bleeding, no purpura Psychiatric: intact recent and remote memory, good judgement and insight, normal mood and affect FMR OB AP PN: Data - Labs Lab results: Laboratory Results - last 24 hr 04/10/20 04/10/20 04/10/20 08:27 12:14 15:08 POC Glucose 149 H 135 H 151 H 04/10/20 04/10/20 04/11/20 18:25 22:39 06:28 POC Glucose 193 H 102 167 H FMR OB AP PN: A/P - Problem List (1) Modified White class B pregestational diabetes mellitus Status: Chronic Code(s): O24.319 - UNSP PRE-EXISTING DIABETES IN , UNSP TRIMESTER (2) AMA (advanced maternal age) multigravida 35+ Status: Acute Code(s): O09.529 - SUPERVISION OF ELDERLY MULTIGRAVIDA, UNSPECIFIED TRIMESTER Qualifiers: Trimester: third trimester Qualified Code(s): O09.523 - Supervision of elderly multigravida, third trimester (3) contractions Status: Acute Code(s): O47.9 - FALSE LABOR, UNSPECIFIED Discussion: Date/Time: 04/11/20 0729 39 yo now 35.0 wks by 8.4 wks, here for labor s/p 2 doses betamethasone. SUNNY 05/16/2020 # IUP, Pre-term contractions -Radha irregularly, made cervical change -SVE: /-3 on 04/08 12/18/-3 on 04/09 @ 01/15/-3 on 04/10 @ 0000 -will recheck SVE this afternoon prior to discharge; if not radha regularly and less than 6 cm [id number] - s/p 2 doses betamethasone - Expectant management - GBS negative 04/07 - US: ANAHI 19.7, cervical length adequate at 3.57 cm, vertex, EFW 45th% - GCC and trich negative at [facility] 04/07. Recent UA negative # AMA - continue ASA until delivery - continue outpt testing at [facility] and serial growth scans with [facility] #White Class B diabetes - Diet controlled prior to admission - BS now elevated 2/2 to steroids. Effect can last 10-14 days - BS elevated overnight to 167; pt was given 11 u this AM; given total of 28 u yesterday - Started metformin 500 mg BID; this can be increased to 1000 mg BID if BS still uncontrolled - Will call to schedule appointment to follow up in [facility] this coming Tuesday #Anemia -Hgb 10.8 This note was discussed with Dr. De La Cruz who agree with the above documentation and plan. Addendum - Attending - Attending Attestation Date/Time: 04/14/20 0588 I personally evaluated the patient and discussed the management with Dr. Woodson I agree with the History, Examination, Assessment and Plan documented above with any addition or exceptions noted below.
--- NOTE | 2020-04-11 07:50 | PRG ---
DATE OF SERVICE: 04/11/2020 SUBJECTIVE: The patient is a 39-year-old female, G3, P2 with an intrauterine at 34 weeks and 6 days, admitted to the hospital for concerns of labor, arrested at 3 cm. The patient has been given 2 doses of betamethasone with her second dose being given early this morning. Her antepartum course has been complicated by B diabetes, and due to the steroids, her blood sugars have been elevated, requiring insulin. Prior to this, the patient was diet controlled. Blood sugars in the last 24 hours are 149 fasting, 135, 151, 193 and 167 fasting this morning. The patient has been on an insulin sliding scale and has received 13 units yesterday evening. I do not see any other insulin at this time. The insulin at that time brought her sugars down into an acceptable range. The patient this morning reports that her contractions have much improved. She does report a bloody mucusy discharge, is able to ambulate, tolerating p.o., voiding on her own, and has no other obstetric complaints. heart tracing last night shows the fetus with her baseline in the 140s with 15 x 15 accelerations, no decelerations. Fasting blood sugar this morning is 167. The patient has just received 11 units of insulin. ASSESSMENT AND PLAN: The patient is a 39-year-old female with an intrauterine at 34 weeks and 6 days, complicated by B diabetes, which had prior been controlled by diet, now is requiring intervention. The patient has received a total of 24 units of insulin in the last 24 hours. I have added metformin to reduce or eliminate her insulin needs as the patient was diet controlled prior to this event. We will keep a close eye on her blood sugars during her stay and give her instructions at time of discharge. Fetus has a category 1 tracing and reactive NST. The patient is arrested at 3 cm at this time. Sometime today, will be re-evaluating for possible discharge home and will get a cervical exam at that time. Job ID: [id number] [facility]
[2020-04-11] MEDS ORDERED: Ferrous Sulfate 325 MG TAB PO SCH (08:00)
[2020-04-11] MEDS ORDERED: metFORMIN 500 MG TAB PO SCH (08:00)
[2020-04-11 08:11] VITALS: TEMP 98.4
[2020-04-11] MEDS ORDERED: Aspirin 81 mg Enteric Coated Tablet PO SCH (09:00)
[2020-04-11] MEDS ORDERED: Prenatal Vitamin 1 TAB PO SCH (09:00)
--- NOTE | 2020-04-11 11:07 | PDOC.BPN ---
<Leana Woodson - Last Filed: 04/11/20 11:07> - Brief Progress Note Patient was interested in prison contraception, was inquiring about tubal ligation. Discussed that we do not do this at this hospital due to it being a [facility]. Discussed her other options that can be further considered outpatient. Started on Metformin 500 mg BID this AM. Two weeks of medication will be sent to her pharmacy, [facility] [address]. She will keep a log of her BS (fasting, 2 hr PP after each meal) for Tuesday and Tuesday. She has a follow up appointment at [facility] at 9:45 on Tuesday and will bring her log to that visit. <Jeffrey Romo - Last Filed: 04/11/20 11:54> - Brief Progress Note OBGYN Faculty: Arrested PTL at 4cm Class B DM started on metformin this AM to cover hypergylcemia effect of steroids. OK for outpatient care and follow up Tuesday
--- NOTE | 2020-04-11 11:57 | PDOC.BPN ---
- Brief Progress Note Rechecked ALIE @ 1145: /-3 Discussed avoiding intercourse or anything placed intravaginally that could stimulate labor, as ideally we hope she will reach 37 weeks before going into labor. Discussed return precautions. Answered all questions. Discharging to home. Paco Woodson MD PGY2
--- NOTE | 2020-04-11 12:20 | DIS ---
DATE OF ADMISSION: 04/10/2020 DATE OF DISCHARGE: 04/11/2020 The patient was actually started to be observed since April 09, but was not formally admitted until the . CHIEF DIAGNOSES: 1. Threatened labor. 2. Arrested labor. HOSPITAL COURSE: In brief, this is a patient who arrived when I was on-call along with the resident team who was also managing. This patient is a 39-year-old, G3, P2, at 34 weeks and 5 days by sure criteria, who came in with possible contractions. Because she had made initially some slight cervical change going from about 2 to 3 cm, the plan was made to watch her and give her some steroids as she was less than 37 weeks. She maintained a stable condition until April 11, 2020. On April 11, 2020, she was rechecked again and found to be no longer changing with her last exam being constant at 4 cm. So, she did change initially from 1 cm several days ago to 2 to 3 cm and then 3 to 4 and that is where she remained. There was no evidence of active contractions or of leakage of fluid. She does have well-controlled preexisting diabetes that was primarily managed by diet, but because of the steroids, she did have some mild hyperglycemia, but nothing over 200. The plan was to give her oral metformin to cover her for the hyperglycemic rise due to the steroid effect given for lung maturity. She will follow up on Tuesday with the resident involvement. Job ID: [id number]
[2020-04-11 14:34] VITALS: BP 90/53
== END 2020-04-11 12:35 | disposition home health service (06) ==
LOC: L&D/OP 17:56 → L&D 04-10 08:14
PROVIDERS: ADMIT Obstetrics & Gynecology; ATTEND Obstetrics & Gynecology
DX: O47.03 False labor before 37 completed weeks of gestation, third trimester (principal); O99.013 Anemia complicating pregnancy, third trimester; D64.9 Anemia, unspecified; O26.893 Other specified pregnancy related conditions, third trimester; N89.8 Other specified noninflammatory disorders of vagina; O24.113 Pre-existing type 2 diabetes mellitus, in pregnancy, third trimester; E11.9 Type 2 diabetes mellitus without complications; O09.523 Supervision of elderly multigravida, third trimester; Z3A.34 34 weeks gestation of pregnancy; Z79.82 Long term (current) use of aspirin
CPT/HCPCS: 36415; 36416; 76815; 85027; 86780; 86850; 86900; 86901; 87081; 87340; 87389; 96372; 99285; G0378; J0595; J0702

== ENCOUNTER 2020-04-24 21:29 | Inpatient (IN) | payer OTHER, SELFPAY ==
[2020-04-24 22:56] VITALS: BMI 25.4
[2020-04-25] MEDS ORDERED: Acetaminophen 500 MG TAB PO PRN (00:39)
[2020-04-25] MEDS ORDERED: hydrALAZINE 20 MG/ML VIAL SLOW IVP PRN (00:39)
[2020-04-25] MEDS ORDERED: Ondansetron PF 4 MG/2 ML Vial IVP PRN ×2 (00:39→03:04)
[2020-04-25] MEDS ORDERED: Lidocaine 1% (PF) 30 ML VIAL SC PRN (00:39)
[2020-04-25] MEDS ORDERED: Butorphanol Tartrate 1 MG/ML VIAL SLOW IVP PRN (00:39)
[2020-04-25] MEDS ORDERED: Meperidine HCl/PF 25 MG/ML VIAL IM/IV PRN (00:39)
[2020-04-25] MEDS ORDERED: NS / Oxytocin 40 units/1000ml 1,000 ML IV PRN (00:39)
[2020-04-25] MEDS ORDERED: Promethazine HCl 25 MG/ML VIAL IM PRN ×2 (00:39→03:04)
[2020-04-25] MEDS ORDERED: Docusate 100 MG CAP PO PRN (00:39)
[2020-04-25] MEDS ORDERED: Misoprostol 200 MCG TAB PR PRN (00:49)
[2020-04-25] MEDS ORDERED: Ibuprofen 800 MG TAB PO PRN (00:49)
[2020-04-25] MEDS ORDERED: Diphenoxylate HCl/Atropine Tablet PO PRN (00:49)
[2020-04-25] MEDS ORDERED: Methylergonovine 0.2 MG/ML VIAL IM PRN (00:49)
[2020-04-25] MEDS ORDERED: Carboprost 250 MCG/ML AMP IM PRN (00:49)
--- NOTE | 2020-04-25 01:25 | PDOC.FPROB ---
FMR OB H&P: HPI - History of Present Illness Chief Complaint: contractions History of Present Illness: Pt is a 39yo at 37wga by LMP confirmed with an 8-5/7week sono who presents with contractions. Patient states they started around 7pm and are occurring every 5 minutes. Patient endorses good movement, no LOF, vaginal bleeding or discharge. When nurse checked patient in triage, she was concerned that baby was not vertex. Patient was 3/50/-3. On bedside ultrasound, baby was confirmed breech presentation. On repeat exam at 00:00, patient had progressed to 4/60/-3 and baby was confirmed by bedside ultrasound to have flipped to vertex. has been complicated by gestational diabetes and anemia of . She has been taking ASA 81mg for pre-E prophylaxis since she is AMA. She denies TORRES, changes in vision, dysuria, SOB, chest pain, RUQ pain, or edema. Pt is GBS negative (04/07/2020). 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 Denies drug, alcohol or tobacco use. - Family History Family History: Denies FMR OB H&P: Medications - Current Home Medications: Medication Instructions Recorded Confirmed Type Aspirin Chewable [Aspirin Chewable 1 tab PO DAILY 03/24/20 04/24/20 History Tablet] Iron 1 tab PO DAILY 03/24/20 04/24/20 History Pnv73/Iron,Gluc/Folic/Dss/Dha 1 tab PO DAILY 04/09/20 04/24/20 History [Citranatal Assure Combo Pack] metFORMIN [Glucophage] 500 mg PO BID-WM #28 tab 04/11/20 04/24/20 Rx Allergies/Adverse Reactions: Allergies Allergy/AdvReac Type Severity Reaction Status Date / Time No Known Allergies Allergy Verified 04/24/20 21:55 FMR OB H&P: ROS - Review of Systems General: denies: fever/chills Eyes: denies: vision changes Cardiovascular: denies: chest pain, edema Respiratory: denies: cough, shortness of breath Gastrointestinal: denies: abdominal pain, nausea, vomiting, diarrhea Genitourinary (Female): reports: contractions (q5min). denies: dysuria, vaginal discharge, vaginal bleeding, vaginal pressure Neurologic: denies: headache Integumentary: denies: rash Psychological: denies: depression, anxiety FMR OB H&P: Vital Signs - Maternal Vital signs: Vital Signs - First Documented Temp Pulse Resp BP 98.6 F 97 18 117/63 04/24/20 21:52 04/24/20 21:52 04/24/20 21:52 04/24/20 21:52 - Heart Tones Baseline: 140 Variability: moderate Acceleration: present Deceleration: absent Category: category 1 [place] contractions every: 10-12min FMR OB H&P: Physical Exam - Physical Exam General: NAD, awake, alert and oriented HEENT: normocephalic and atraumatic, EOMI Neck: trachea midline Chest: non-tender to palpation Heart: RRR, normal S1/S2, no murmurs/rubs/gallops, no edema General: CTAB, no respiratory distress, no wheezing Abdomen: soft, gravid, non-tender Musculoskeletal: pulses present Neurological: cranial nerves II through XII intact Skin: no rash, good tugor Lymphatic: no unusual bruising or bleeding Psychiatric: intact recent and remote memory, good judgement and insight, normal mood and affect FMR OB H&P: A/P - Problem List (1) Term Current Visit: Yes Status: Acute Code(s): Z34.90 - ENCNTR FOR SUPRVSN OF NORMAL , UNSP, UNSP TRIMESTER (2) AMA (advanced maternal age) multigravida 35+ Current Visit: No Status: Acute Code(s): O09.529 - SUPERVISION OF ELDERLY MULTIGRAVIDA, UNSPECIFIED TRIMESTER Qualifiers: Trimester: third trimester Qualified Code(s): O09.523 - Supervision of elderly multigravida, third trimester (3) GDM (gestational diabetes mellitus) Current Visit: No Status: Acute Code(s): O24.419 - GESTATIONAL DIABETES MELLITUS IN , UNSP CONTROL (4) Anemia in preg-unspec Current Visit: Yes Status: Chronic Code(s): O99.019 - ANEMIA COMPLICATING , UNSPECIFIED TRIMESTER Disposition: Pt is a 39yo at 37wga by LMP confirmed with an 8-5/7week sono who presents with contractions. 1. Labor -patient is subjectively radha every 5 minutes, but toco is showing every 10-12minutes -patient went from 3/50/-3 to 4/60/-3 in 2 hours -Cat 1 strip -continue cervical checks q2hr 2. Gestational Diabetes -patient's last A1C was 5.3% -Patient was originally diagnosed as A1DM, but not A2DM. Was sent home on Metformin on discharge on 04/07, but denies taking medication -will monitor glucose 3. Anemia in -continue home PNV -Hemoglobin 12 today 4. Advanced Maternal Age -on ASA 81mg for pre-E prophylaxis Discussion: Date/Time: 04/25/20 8021 This H&P was discussed with Dr. Solomon who agrees with the above documentation and plan. I, Lopez Sheikh DO, have evaluated and agree with the above plan as outlined by the agribusiness internship resident.
[2020-04-25 01:44] LABS: Mean Corpuscular Hemoglobin 34.2 pg (27.0-31.0); Mean Corpuscular Volume 97.8 fL (78.0-98.0); Mean Platelet Volume 7.1 fL (7.4-10.4); Platelet Count 353 thou/uL (130-400); RBC Distribution Width 13.7 % (11.5-14.5); Red Blood Cell (RBC) Count 3.51 mill/uL (4.20-5.40); White Blood Cell (WBC) Count 10.5 thou/uL (4.8-10.8)
[2020-04-25] MEDS ORDERED: Fentanyl 4 mcg/Bup 0.1% Cadd 100 ML ONE ×2 (02:06→10:27)
[2020-04-25] MEDS: Lactated Ringer's 1,000 ML IV SCH ×2 (02:10→09:16)
[2020-04-25 02:23] LABS: HBSAg Index 0.13 S/CO (0-0.99); Hep B Surf Ag Non-Reactive S/CO (NonReactive)
[2020-04-25] MEDS ORDERED: diphenhydrAMINE 50 MG/ML VIAL IVP PRN (03:04)
[2020-04-25] MEDS ORDERED: Naloxone HCl 0.4 mg/ml Vial IVP PRN ×2 (03:04)
[2020-04-25] MEDS ORDERED: EPHEDRINE 25 MG/5 ML SYRINGE SLOW IVP PRN (03:04)
[2020-04-25] MEDS ORDERED: Lactated Ringer's 500 ML IV PRN (03:04)
[2020-04-25] MEDS ORDERED: Communication Order-Pharmacy FS SCH (03:15)
[2020-04-25] MEDS ORDERED: Fentanyl 4 mcg/Bupivacaine 0.1% Cassette 100 ML EPIDURAL SCH (03:15)
--- NOTE | 2020-04-25 03:55 | PDOC.BPN ---
- Brief Progress Note Labor Progress Note Pt is a 39yo at 37wga by LMP confirmed with an 8-5/7week sono who presented with contractions. has been complicated by gestational diabetes and anemia of . GBS negative. SROM at 0303; copious amounts of clear fluid noted by the nurse Cervical check at 0310: 6/100/-2 Cat 1 strip: 150 bpm, moderate variability with positive accels [place] showed irregular contractions Will plan to recheck cervix at 0500.
[2020-04-25 04:52] LABS: Syphilis Antibody Nonreactive (Nonreactive); Syphilis Antibody Index 0.03 S/CO (<1.00 Non-Reactive)
--- NOTE | 2020-04-25 06:07 | PDOC.LDPN ---
Labor & Delivery Progress Note - Subjective Subjective: comfortable - Objective Abnormal vital signs: Pt has been tachy 100-110; afebrile General: NAD Uterine fundus: non tender Dilation: 7 Effacement: 100% Station: -1 FHT: category 2 [place] contractions every: 2-3 Plan: continue plan of care -: Pt is a 39yo at 37wga by LMP confirmed with an 8-5/7week sono who presented with contractions. has been complicated by gestational diabetes and anemia of . GBS negative. 1. Normal labor management - SROM at 0303; copious amounts of clear fluid noted by the nurse - last check at 0530; 7/100/-1; Next check at 0730 - epidural in place - Cat 2 strip: 150 bpm, min-mod variability; fluid bolus given - glucose 101 @ 0605
--- NOTE | 2020-04-25 08:00 | PDOC.LDPN ---
Labor & Delivery Progress Note - Subjective Subjective: comfortable - Objective Abnormal vital signs: Tachy, but afebrile General: NAD, resting Uterine fundus: non tender Dilation: 8 Effacement: 100% Station: 0 FHT: category 1, early decelerations, variability present [place] contractions every: 3-4 min Plan: continue plan of care -: Pt is a 39yo at 37wga by LMP confirmed with an 8-5/7week sono who presented with contractions. has been complicated by gestational diabetes and anemia of . GBS negative. 1. Normal labor management - SROM at 0303; copious amounts of clear fluid noted by the nurse - last check at 0715; 8/100/0; Next check at 0930 - epidural in place - Cat 1 strip: 150 bpm, mod variability, early decels
[2020-04-25] MEDS ORDERED: Aspirin Chewable 81 MG TAB PO SCH (09:00)
[2020-04-25] MEDS: Prenatal Vitamin 1 TAB PO SCH (09:15)
[2020-04-25] MEDS ORDERED: Oxytocin 10 UNITS/ML VIAL ONE (09:39)
[2020-04-25] MEDS ORDERED: NS w/ Oxytocin 10 units 500 ML ONE (09:39)
[2020-04-25] MEDS ORDERED: NS w/ Oxytocin 10 units 500 ML IV SCH (09:45)
[2020-04-25] MEDS: Acetaminophen 325 MG TAB PO PRN ×2 (10:26→15:59)
--- NOTE | 2020-04-25 11:06 | PDOC.LDPN ---
Labor & Delivery Progress Note - Subjective Subjective: comfortable - Objective Abnormal vital signs: Tachy but afebrile General: NAD Uterine fundus: non tender Dilation: 9 Effacement: 100% Station: 1+ FHT: category 1, early decelerations, variability present [place] contractions every: 1-2 min Plan: continue plan of care -: Pt is a 39yo at 37wga by LMP confirmed with an 8-5/7week sono who presented with contractions. has been complicated by gestational diabetes and anemia of . GBS negative. 1. Normal labor management - SROM at 0303; copious amounts of clear fluid noted by the nurse - last check at 1104; 9/100/1; Next check at 1300 - pit running at 4 - epidural in place - Cat 1 strip: 150 bpm, mod variability, early decels - will continue to monitor tachycardia; currently afebrile
[2020-04-25] MEDS ORDERED: Misoprostol 200 MCG TAB ONE (11:20)
--- NOTE | 2020-04-25 14:44 | PDOC.EVN ---
Event Note - Event Note Event Note: I was present and involved during patient pushing efforts and delivery of the . With slow crowing of the infant from a multiparous patient-a stool and extra nurse was called to the room. After the delivery of the head a shoulder dystocia was noted. When shoulder dystocia was noted McRobert's was applied, Dr. Ko proceeded with gentle downward traction the anterior shoulder did not effectively deliver. At that time suprapubic pressure was applied while I delivered the anterior shoulder (left UE) followed by the posterior shoulder which delivered without difficulty. The cord was cut and the infant was handed off to a nursery nurse present for delivery. I remained at the bedside while the placenta was delivered and the vaginal repair was then completed.
--- NOTE | 2020-04-25 14:46 | PDOC.OPDEL ---
OB Operative/Delivery Note Delivery Dr/Surgeon: Maikel Cooper Assist: Fernando Pre-Delivery Diagnosis: active labor (A1DM) Procedure/Post Delivery Dx: spontaneous vaginal delivery Weeks gestation: 37 Anesthesia: epidural - Findings A Sex: female - Additional Findings/Plan Placenta delivered: spontaneous Repaired Obstetrical Laceration: 2nd degree Estimated blood loss: 150ml Compilations/Other Findings: shoulder dystocia I was present and involved during patient pushing efforts and delivery of the . With slow crowing of the from a multiparous patient-a stool and extra nurse was called to the room. After the delivery of the infant head a shoulder dystocia was noted. When shoulder dystocia was noted McRobert's was applied, Dr. Ko proceeded with gentle downward traction the anterior shoulder did not effectively deliver. At that time suprapubic pressure was applied while I delivered the anterior shoulder (left UE) followed by the posterior shoulder which delivered without difficulty. The cord was cut and the was handed off to a nursery nurse present for delivery. I remained at the bedside while the placenta was delivered and the vaginal repair was then completed. Post delivery plan: routine recovery
[2020-04-25 15:05] LABS: Actual Bicarbonate (HCO3v) 19 mEq/L (22-28); Base Excess -7.2 mEq/L (-2.0 to +3.0)
[2020-04-25 15:06] LABS: Actual Bicarbonate (HCO3a) 22.9 mEq/L (22-28)
[2020-04-25] MEDS ORDERED: Lanolin Ointment 7 GM TUBE TOP PRN (16:02)
[2020-04-25] MEDS ORDERED: NS / Oxytocin 40 units/1000ml 1,000 ML IV SCH (16:02)
[2020-04-25] MEDS ORDERED: Milk Of Magnesia 30 ML UDCUP PO PRN (16:02)
[2020-04-25] MEDS ORDERED: Benzocaine-Menthol 82.5 ML CAN TOP PRN (16:02)
[2020-04-25] MEDS ORDERED: Bisacodyl 10 MG SUPP PR PRN (16:02)
[2020-04-25] MEDS: Ferrous Sulfate 325 MG TAB PO SCH (18:40)
[2020-04-25] MEDS: Ampicillin 2 GM in Sodium Chloride 0.9% 100 ML IVPB SCH (18:52)
[2020-04-25] MEDS: Ibuprofen 800 MG TAB PO SCH (22:00)
[2020-04-25] MEDS: Docusate Calcium (SURFAK) 240 MG CAP PO SCH (22:00)
[2020-04-25] MEDS ORDERED: Dextrose 50% Abboject 50 ML SYRINGE SLOW IVP PRN (22:54)
[2020-04-25] MEDS ORDERED: HumaLOG 300 UNITS/3 ML VIAL SC PRN ×2 (22:54)
[2020-04-25] MEDS ORDERED: Dextrose 5% in Water 1,000 ML IV PRN (22:54)
[2020-04-26] MEDS: Ampicillin 2 GM in Sodium Chloride 0.9% 100 ML IVPB SCH ×4 (00:44→18:42)
[2020-04-26] MEDS ORDERED: GENTAMICIN SULFATE IVPB SCH (05:15)
[2020-04-26] MEDS ORDERED: SODIUM CHLORIDE 0.9% IVPB SCH (05:15)
--- NOTE | 2020-04-26 05:28 | PDOC.PP ---
Post Progress Note Post Day #: 1 Subjective: 39YO G3 now P3003 who is PP day #1 s/p . Afebrile w/ all normal VS except slightly elevated RR since arrival to but all VS WNLs on exam this AM. Tolerating PO, ambulating, voiding & passing gas. Reports miminal lochia. Pain controlled with PO meds. Denies fever/chills, SOB or chest pain. PO intake tolerated: yes Flatus: yes Ambulation: yes Vital Signs (12 hours) Temp Pulse Resp BP Pulse Ox 04/26/20 00:30 98.3 F 80 24 H 94/53 L 97 04/25/20 20:50 99 F 78 24 H 99/57 L 99 04/25/20 19:45 98.5 F 92 24 H 96/53 L 97 04/25/20 18:45 97.7 F 90 18 96/53 L 97 Weight Weight 58.967 kg - Physical Examination General: NAD Cardiovascular: no m/r/g, RRR Respiratory: clear to auscultation bilaterally, non-labored breathing Abdominal: + bowel sounds, lochia, appropriately TTP Fundus firm & at: just above umbilicus Extremities: negative homans (B) Skin: no rash Perineum: sutures intact w/o edema, erythema or drainage noted Neurological: no gross focal deficits Psychiatric: A&Ox3, normal affect Result Diagrams: 04/25/20 01:34 Additional Labs: Post Labs Blood Type O POSITIVE 04/25/20 01:34 Hep Bs Antigen Non-Reactive S/CO (NonReactive) 04/25/20 01:34 (1) care following vaginal delivery Code(s): Z39.2 - ENCOUNTER FOR ROUTINE FOLLOW-UP Status: Acute (2) Chorioamnionitis, delivered, current hospitalization Code(s): O41.1290 - CHORIOAMNIONITIS, UNSP TRIMESTER, NOT APPLICABLE OR UNSP Status: Acute (3) Second degree laceration of perineum, delivered, current hospitalization Code(s): O70.1 - SECOND DEGREE PERINEAL LACERATION DURING DELIVERY Status: Acute (4) Anemia in preg-unspec Code(s): O99.019 - ANEMIA COMPLICATING , UNSPECIFIED TRIMESTER Status : Chronic (5) AMA (advanced maternal age) multigravida 35+ Code(s): O09.529 - SUPERVISION OF ELDERLY MULTIGRAVIDA, UNSPECIFIED TRIMESTER Status: Chronic Qualifiers: Trimester: third trimester Qualified Code(s): O09.523 - Supervision of elderly multigravida, third trimester (6) GDM (gestational diabetes mellitus) Code(s): O24.419 - GESTATIONAL DIABETES MELLITUS IN , UNSP CONTROL Status: Chronic Qualifiers: Gestational diabetes mellitus control: diet-controlled - Assessment/Plan 39YO G3 now P3003 who is PP day #1 s/p complicated by shoulder dystocia & second degree lac s/p repair who subsequently developed PP fever suspected to be 2/2 IAI. #PP day #1 s/p w/ second degree lac s/p repair: Ambulating, tolerating PO and voiding normally. Passing gas w/ normal lochia. Pain controlled on PO meds. Sutures intact w/o evidence of hematoma or infection. Continue routine PP care. #Suspected IAI: Fevered up to 102.4F on L&D immediately following delivery w/ slightly elevated temp earlier in the day just above 99F. Started on amp Q6H & gent Q24Hr yesteday evening & will plan to continue until tomorrow AM & will d/ c if patient remains fever-free until that time. Continue to monitor VS closely. #A1GDM: Aware, elevated BG overnight at 170. CC diet w/ ACHS accuchecks today. Will start SSI PRN is BG remains elevated. Needs testing 6 weeks PP to r/o DMII. #AMA: Aware, will discuss contraception options. #Anemia in : H/H 12/34.3 on admission w/ QBL of only 267 since delivery. Continue PNVs PP. Dispo: Continue routine PP care w/ anticipated possible d/c home tomorrow pending patient and infant's clinical course.
[2020-04-26] MEDS: Lactated Ringer's 1,000 ML IV SCH ×4 (05:44→17:59)
[2020-04-26] MEDS: Ibuprofen 800 MG TAB PO SCH ×3 (06:10→21:43)
[2020-04-26 07:03] LABS: Anion Gap 9 mmol/L (10-20); BUN (Urea Nitrogen) 7 mg/dL (7.0-18.7); Calc. Creatinine Clearance 118 mL/min (70-130); Carbon Dioxide 19 mmol/L (22-29); Chloride 112 mmol/L (98-107); Estimated GFR-MDRD Greater than 90; Glucose 92 mg/dL (70-105); Potassium 3.4 mmol/L (3.5-5.1); Sodium 137 mmol/L (136-145)
[2020-04-26] MEDS: Ferrous Sulfate 325 MG TAB PO SCH ×2 (09:10→14:42)
[2020-04-26] MEDS: Docusate Calcium (SURFAK) 240 MG CAP PO SCH ×2 (09:31→21:43)
[2020-04-26] MEDS: Prenatal Vitamin 1 TAB PO SCH (09:31)
[2020-04-27] MEDS: Ampicillin 2 GM in Sodium Chloride 0.9% 100 ML IVPB SCH ×2 (00:16→06:05)
[2020-04-27] MEDS: Ibuprofen 800 MG TAB PO SCH ×3 (06:05→21:02)
[2020-04-27] MEDS: Lactated Ringer's 1,000 ML IV SCH ×3 (06:19→16:26)
--- NOTE | 2020-04-27 06:50 | PDOC.PP ---
Post Progress Note Post Day #: 2 Subjective: Doing very well this morning. No concerns. Ambulating, voiding and stooling, tolerating PO well. Lochia minimal. Pain well-controlled. No abd pain, fever/ chills, body aches, n/v. She is working on breast feeding. PO intake tolerated: yes Flatus: yes Ambulation: yes Vital Signs (12 hours) Temp Pulse Resp BP BP Pulse Ox 04/27/20 04:25 98.2 F 70 20 118/59 L 99 04/27/20 00:10 98.1 F 68 20 108/56 L 99 04/26/20 20:00 97.8 F 80 20 119/58 L 98 Weight Weight 58.967 kg - Physical Examination General: NAD Cardiovascular: no m/r/g, RRR Respiratory: clear to auscultation bilaterally Abdominal: + bowel sounds, no distention, appropriately TTP Fundus firm & at: below umbilicus Extremities: negative homans (B) Neurological: no gross focal deficits Psychiatric: A&Ox3, normal affect Result Diagrams: 04/25/20 01:34 04/26/20 06:37 Additional Labs: Post Labs Blood Type O POSITIVE 04/25/20 01:34 Hep Bs Antigen Non-Reactive S/CO (NonReactive) 04/25/20 01:34 (1) Chorioamnionitis, delivered, current hospitalization Code(s): O41.1290 - CHORIOAMNIONITIS, UNSP TRIMESTER, NOT APPLICABLE OR UNSP Status: Acute (2) care following vaginal delivery Code(s): Z39.2 - ENCOUNTER FOR ROUTINE FOLLOW-UP Status: Acute (3) Second degree laceration of perineum, delivered, current hospitalization Code(s): O70.1 - SECOND DEGREE PERINEAL LACERATION DURING DELIVERY Status: Acute - Assessment/Plan 39yo G3 now P3003 who is PP day #2 s/p complicated by shoulder dystocia & second degree lac s/p repair who subsequently developed PP fever suspected to be 2/2 IAI. #PP day #2 s/p w/ second degree lac s/p repair - @ 1410 on 04/25/20 at 37wks - Ambulating, tolerating PO and voiding normally. Stooling w/ normal lochia. - Pain controlled on PO meds. - cont routine PP care #Suspected IAI - Fevered up to 102.4F on L&D immediately following delivery w/ slightly elevated temp earlier in the day just above 99F. - Started on amp Q6H & gent Q24Hr PPD#0 - VSS and afebrile since the single fever - will anticipate d/c of abx at time of discharge, with strict return/ED precautions #A1GDM - Aware, BG WNL, has not required any SS insulin - cont to monitor ACHS, will need PP testing 6 weeks PP for DMII #AMA - Aware, will discuss contraception options. #Anemia in - H/H 12/34.3 on admission w/ QBL of only 267 since delivery. Continue PNVs PP. PCP: [facility] Dispo: Continue routine PP care w/ anticipated possible d/c home today pending patient and 's clinical course.
[2020-04-27] MEDS: Ferrous Sulfate 325 MG TAB PO SCH ×2 (07:33→16:26)
[2020-04-27] MEDS: Prenatal Vitamin 1 TAB PO SCH (08:15)
[2020-04-27] MEDS: Docusate Calcium (SURFAK) 240 MG CAP PO SCH ×2 (08:15→21:02)
[2020-04-28] MEDS: Lactated Ringer's 1,000 ML IV SCH (03:55)
[2020-04-28] MEDS: Ibuprofen 800 MG TAB PO SCH ×2 (05:36→15:35)
--- NOTE | 2020-04-28 06:50 | PDOC.PP ---
Post Progress Note Post Day #: 3 Subjective: Doing well, no concerns this morning. Ambulating, tolerating PO without n/v, voiding and stooling, minimal pain, lochia minimal. . Eager for discharge home. Desires contraception, either OCPs or IUD. No fever/chills, myalgias. PO intake tolerated: yes Flatus: yes Ambulation: yes Vital Signs (12 hours) Temp Pulse Resp BP Pulse Ox 04/27/20 20:56 98.4 F 74 18 112/54 L 98 Weight Weight 58.967 kg - Physical Examination General: NAD (in good spirits) Cardiovascular: no m/r/g, RRR Respiratory: clear to auscultation bilaterally Abdominal: + bowel sounds, appropriately TTP Fundus firm & at: below umbilicus Extremities: negative homans (B) (no edema) Neurological: no gross focal deficits Psychiatric: A&Ox3, normal affect Result Diagrams: 04/25/20 01:34 04/26/20 06:37 Additional Labs: Post Labs Blood Type O POSITIVE 04/25/20 01:34 Hep Bs Antigen Non-Reactive S/CO (NonReactive) 04/25/20 01:34 (1) Chorioamnionitis, delivered, current hospitalization Code(s): O41.1290 - CHORIOAMNIONITIS, UNSP TRIMESTER, NOT APPLICABLE OR UNSP Status: Acute (2) care following vaginal delivery Code(s): Z39.2 - ENCOUNTER FOR ROUTINE FOLLOW-UP Status: Acute (3) Second degree laceration of perineum, delivered, current hospitalization Code(s): O70.1 - SECOND DEGREE PERINEAL LACERATION DURING DELIVERY Status: Acute - Assessment/Plan 39yo G3 now P3003 who is PP day #3 s/p complicated by shoulder dystocia & second degree lac s/p repair who subsequently developed PP fever suspected to be 2/2 IAI. #PP day #3 s/p w/ second degree lac s/p repair - @ 1410 on 04/25/20 at 37wks - Ambulating, tolerating PO and voiding and stooling normally. Normal lochia. - Pain controlled on PO meds. - cont routine PP care #Suspected IAI - Fevered up to 102.4F on L&D immediately following delivery w/ slightly elevated temp earlier in the day just above 99F. - Amp Q6H & gent Q24Hr x3d, discontinued yesterday, observed and has been fever- free for past 24 hours off abx - anticipate d/c today, with strict return/ED precautions #A1GDM - Aware, BG WNL, has not required any SS insulin - Accuchecks discontinued, can stop metformin, will need DM testing 6 weeks PP with PCP #[facility] - Aware, desires IUD vs OCP #Anemia in - H/H 34.3 on admission w/ QBL of only 267 since delivery. Continue PNVs PP. PCP: [facility] Dispo: Continue routine PP care w/ anticipated possible d/c home today pending patient and infant's clinical course.
[2020-04-28] MEDS: Prenatal Vitamin 1 TAB PO SCH (08:26)
[2020-04-28 09:30] VITALS: BP 117/61; TEMP 97.9
== END 2020-04-28 16:05 | disposition home or self-care (01) | DRG 807 ==
LOC: L&D/OP 21:29 → L&D 04-25 00:39 → 3SE 04-25 19:27 → 3SW 04-27 16:46
PROVIDERS: ADMIT Obstetrics & Gynecology; ATTEND Obstetrics & Gynecology
PROC: 10E0XZZ Delivery of Products of Conception, External Approach (ICD-10-PCS; principal; 2020-04-25)
PROC: 0KQM0ZZ Repair Perineum Muscle, Open Approach (ICD-10-PCS; 2020-04-25)
DX: O24.420 Gestational diabetes mellitus in childbirth, diet controlled (principal); Z37.0 Single live birth; Z3A.37 37 weeks gestation of pregnancy; O99.02 Anemia complicating childbirth; O41.1290 Chorioamnionitis, unspecified trimester, not applicable or unspecified; D64.9 Anemia, unspecified; O70.1 Second degree perineal laceration during delivery
CPT/HCPCS: 36415; 36416; 51702; 80048; 82805; 85027; 86780; 86850; 86900; 86901; 87340; 99285; J0290; J1580; J2590; J3490